=== PATIENT | female | born 1965 | race Caucasian/White ===

== ENCOUNTER 2023-06-21 09:00 | Emergency (ER) | payer OTHER, SELFPAY ==
[2023-06-21 09:09] VITALS: BP 181/102; PULSE 108; RESP 16; TEMP 36.7; O2SAT 98; BMI 42.5
--- NOTE | 2023-06-21 09:42 | ED.GENADUL1 ---
HPI - General Adult General Chief complaint: Vaginal Bleeding Stated complaint: BLOOD CLOTS/ABDOMINAL-OVARIAN PAIN Time Seen by Provider: 06/21/23 09:39 Source: patient and family Mode of arrival: walk-in Limitations: no limitations History of Present Illness HPI narrative: 58-year-old female to the emergency department with chief complaint of vaginal bleeding. Patient reports that she had a menstrual period that began on Tuesday. She reports cramping and heavier bleeding than typical. She passed several blood clots this AM. She reports some cramping lower abdominal pain associated with the bleeding. She has not taken any medications at home. She denies , reports she has not been sexually active for eleven years. She has not followed up with her HIGHWAY ENGINEERING TECHNICIAN in several years. She has an appointment with her PCP for this tomorrow AM. She reports that she has had increasingly infrequent and irregular menstrual cycles over the last several years. She believed that she was menopausal. She notes that when she does have it the bleeding is heavier than typical. She reports she is otherwise healthy. No blood thinners. No bleeding disorders. Related Data Previous Rx's Medication Instructions Recorded megestrol 20 mg tablet 20 mg PO BID #30 tabs 06/21/23 Allergies Allergy/AdvReac Type Severity Reaction Status Date / Time No Known Drug Allergies Allergy Verified 06/21/23 09:15 Review of Systems ROS Status of ROS 10 or more systems reviewed and unremarkable except as noted in history and below [facility] Social History Smoking status: Never smoker Exam Narrative Exam Narrative: VITALS: I have reviewed the triage vital signs. GENERAL: Well developed, well appearing adult in no acute distress. NEURO: Alert and oriented. Moves all extremities. Face is symmetric and expressive. EYES: PERRL. No scleral icterus or conjunctival injection. No discharge. HENT: Normocephalic, atraumatic. Hearing is grossly intact. Nares grossly patent and without discharge. Mucous membranes moist. NECK: No JVD. Patient moves neck without restriction. CARDIO: Rhythm regular. Normal rate. No murmur, rub, or gallop. Pulses equal bilaterally in the upper and lower extremity. No lower extremity edema. PULM: Lungs clear to auscultation in all blankenship. No wheezes, rales, or rhonchi. No conversational dyspnea. No splinting, stridor, or accessory muscle use. GI/: Abdomen is soft and non-tender. Normoactive bowel sounds. PELVIC EXAM: Consent obtained. Nurse Jesusita present in room as boat builder. External genitalia unremarkable. Speculum exam with normal appearing whitish vaginal discharge, small amount fo bright red blood. No clots in the vault. Vaginal wall mucosa is unremarkable. Cervix is unremarkable and closed in appearance without any protruding material. EXTREMITIES: Symmetric muscle bulk. No joint swelling. No clubbing, cyanosis, or deformity. SKIN: Warm and dry. Normal turgor. No rash or lesions appreciated. PSYCH: Mood, affect, and interaction is appropriate to the setting. Constitutional Vital Signs, click to edit/add: Last Vital Signs Temp 98.1 F 06/21/23 09:09 Pulse 108 H 06/21/23 09:09 Resp 16 06/21/23 09:09 BP 181/102 H 06/21/23 09:09 Pulse Ox 98 06/21/23 09:09 O2 Del Method Room Air 06/21/23 09:09 Course Vital Signs Vital signs: Vital Signs Temperature 98.1 F 06/21/23 09:09 Pulse Rate 108 H 06/21/23 09:09 Respiratory Rate 16 06/21/23 09:09 Blood Pressure 181/102 H 06/21/23 09:09 Pulse Oximetry 98 06/21/23 09:09 Oxygen Delivery Method Room Air 06/21/23 09:09 Temperature 98.1 F 06/21/23 09:09 Pulse Rate 108 H 06/21/23 09:09 Respiratory Rate 16 06/21/23 09:09 Blood Pressure 181/102 H 06/21/23 09:09 Pulse Oximetry 98 06/21/23 09:09 Oxygen Delivery Method Room Air 06/21/23 09:09 Medical Decision Making MDM Narrative Medical decision making narrative: MDM Data External documents reviewed: Not applicable My EKG interpretation: Not applicable My CT interpretation: Not applicable My X-ray interpretation: Not applicable My Ultrasound interpretation: Not applicable Decision rules/scores evaluated: Not applicable Discussed with: FRANKLIN Rios via telephone Treatment and Disposition ED Course: 58 y/o female to the ED with abnormal uterine bleeding. Vitals stable, the patient is afebrile. Basic labs and pelvic exam to be performed. Blood work reviewed and noted. She is anemic, unknown chronicity. She reports she has been told she is anemic in the past and does not believe that this number is abnormal for her. test is negative. Pelvic with blood in the vault, no obvious abn otherwise. Will proceed with US Pelvis. Ultrasound with two cysts on the ovaries. There is significantly thickened endometrium. Case was discussed with the on-call HIGHWAY ENGINEERING TECHNICIAN. Patient will need expedient workup, he will see next week. He recommended prescription of Megace. Patient updated on plan. She agrees with this. She will see Dr. Villatoro. Return precautions discussed. All questions were answered. The patient was discharged home. Shared decision making: As above Code status: Not addressed during this visit Medical Records Medical records reviewed: Yes I reviewed the patient's medical records Lab Data Lab results reviewed: Yes I reviewed the patient's lab results Labs: Lab Results 06/21/23 06/21/23 Range/Units 09:20 10:23 WBC 14.6 H (4.0-11.0) 10^3/uL RBC 4.30 (4.20-5.40) 10^6/uL Hgb 8.9 L (12.0-16.0) g/dL Hct 29.8 L (36.0-48.0) % MCV 69.3 L (81.0-99.0) fL MCH 20.7 L (26.7-34.0) pg MCHC 29.9 (29.9-35.2) g/dL RDW 21.3 H (11.0-15.0) % Plt Count 405 (150-450) 10^3/uL MPV 10.2 (9.5-13.5) fL Neut % (Auto) 73.6 (43.0-75.0) % Lymph % (Auto) 14.7 L (20.5-60.0) % [place] % (Auto) 8.5 (1.7-12.0) % Eos % (Auto) 2.0 (0.9-7.0) % Baso % (Auto) 0.8 (0.2-2.0) % Neut # (Auto) 10.8 H (1.4-6.5) 10^3/uL Lymph # (Auto) 2.2 (1.2-3.8) 10^3/uL [place] # (Auto) 1.3 H (0.3-0.8) 10^3/uL Eos # (Auto) 0.3 (0.0-0.7) 10^3/uL Baso # (Auto) 0.1 (0.0-0.1) 10^3/uL Abs Immat Gran (auto) 0.06 H (0.00-0.03) 10^3/uL Imm/Tot Granulo (auto) 0.4 (0.0-0.5) % Sodium 140 (136-145) mmol/L Potassium 3.9 (3.5-5.1) mmol/L Chloride 105 (98-107) mmol/L Carbon Dioxide 25.0 (21.0-32.0) mmol/L Anion Gap 13.9 BUN 6.0 L (7.0-18.0) mg/dL Creatinine 0.74 (0.55-1.02) mg/dL Est GFR ( Amer) >60 (>=60) Est GFR (Non-Af Amer) >60 (>=60) BUN/Creatinine Ratio 8.1 Glucose 132 H (74-106) mg/dL Calcium 8.7 (8.5-10.1) mg/dL Serum HCG, Qual Negative (NEGATIVE) Urine Color Dk red A (YELLOW) Urine Clarity Cloudy A (CLEAR) Urine pH 5.0 (5.0-9.0) Ur Specific [place] 1.025 (1.005-1.025) Urine Protein 100 A (NEG/TRACE) mg/dL Urine Glucose (UA) Negative (NEGATIVE) mg/dL Urine Ketones 15 A (NEGATIVE) mg/dL Urine Occult Blood Large A (NEGATIVE) Urine Nitrite Negative (NEGATIVE) Urine Bilirubin Negative (NEGATIVE) Urine Urobilinogen 0.2 (0.2-1.0) EU/dL Ur Leukocyte Esterase Trace A (NEGATIVE) Urine RBC >100 A (0-2) #/HPF Urine WBC 5-10 A (NONE SEEN) #/HPF Ur Squamous Epith Cells Moderate A (NONE/RARE) #/LPF Urine Crystals Seen A (None Seen) #/HPF Amorphous Sediment Moderate Urine Bacteria Moderate A (NONE SEEN) #/HPF Urine Mucus None seen (NONE SEEN) Discharge Plan Discharge Chief Complaint: Vaginal Bleeding Clinical Impression: Dysfunctional uterine bleeding Time of Disposition Decision: 12:35 Condition: Good Mode of Transportation: Private Vehicle Prescriptions / Home Meds: New megestrol 20 mg tablet 20 mg PO BID Qty: 30 0RF Rx Instructions: TAKE TWICE DAILY FOR 3 DAYS AND THEN ONCE DAILY ONGOING. Instructions: Abnormal (Dysfunctional) Uterine Bleeding (ED) Stand Alone Forms: Portal Instructions Referrals: Sincere Villatoro DO [Physician] - 1 week (LET THEM KNOW YOU WERE SEEN IN THE ED AND DR. VILLATORO WANTS YOU TO BE SEEN NO LATER THAN NEXT WEEK. ) Physician,Non-Staff, MD [Primary Care Provider] - 1 week
[2023-06-21 09:48] LABS: Anion Gap 13.9; BUN Creatinine Ratio 8.1; Calcium 8.7 mg/dL (8.5-10.1); Chloride 105 mmol/L (98-107); Estimated GFR (African America >60 (>=60); Estimated GFR (Non-African Ame >60 (>=60); Glucose 132 mg/dL (74-106); Potassium 3.9 mmol/L (3.5-5.1); Sodium 140 mmol/L (136-145)
[2023-06-21 09:53] LABS: Basophils Absolute Auto 0.1 10^3/uL (0.0-0.1); Basophils Percent Auto 0.8 % (0.2-2.0); Eosinophils Absolute Auto 0.3 10^3/uL (0.0-0.7); Hematocrit 29.8 % (36.0-48.0); Hemoglobin 8.9 g/dL (12.0-16.0); Immature Granulocytes Abs Auto 0.06 10^3/uL (0.00-0.03); Immature Granulocytes Pct Auto 0.4 % (0.0-0.5); Lymphocytes Absolute Auto 2.2 10^3/uL (1.2-3.8); Lymphocytes Percent Auto 14.7 % (20.5-60.0); Mean Corpuscular HGB Conc 29.9 g/dL (29.9-35.2); Mean Corpuscular Hemoglobin 20.7 pg (26.7-34.0); Mean Corpuscular Volume 69.3 fL (81.0-99.0); Mean Platelet Volume 10.2 fL (9.5-13.5); Monocytes Absolute Auto 1.3 10^3/uL (0.3-0.8); Monocytes Percent Auto 8.5 % (1.7-12.0); Neutrophils Absolute Auto 10.8 10^3/uL (1.4-6.5); Neutrophils Percent Auto 73.6 % (43.0-75.0); Platelet Count 405 10^3/uL (150-450); Red Cell Distribution Width 21.3 % (11.0-15.0); White Blood Count 14.6 10^3/uL (4.0-11.0)
[2023-06-21] MEDS: IBUPROFEN 600 MG TABLET PO (10:04)
--- NOTE | 2023-06-21 10:16 | US_ITS ---
[address] [address] Patient Name: BETINA KELLY MRN: [id number] date: 1965 Sex: F Assigned Patient Location: ER Current Patient Location: ER Accession/Order Number: [id number] Exam Date: 06/21/2023 10:40 Report Date: 06/21/2023 11:38 At the request of: THA CAICEDO Procedure: US pelvis transvaginal EXAMINATION: US pelvis transvaginal HISTORY: Pain, bleeding COMPARISON: No relevant comparison available. TECHNIQUE: Transabdominal and/or transvaginal sonographic examination was performed as indicated by examination type. FINDINGS: UTERUS: Enlarged uterus with homogeneous echotexture; no appreciable mass. Uterus size: 13.2 x 11.2 x 7.5 cm ENDOMETRIUM: Abnormally thickened but homogeneous. Endometrial thickness: 36 mm RIGHT OVARY: Contains a hypoechoic 2.0 cm vascular structures suspected to represent a complex cyst. I hypoechoic mass is felt less likely. Duplex Doppler demonstrates normal waveform and flow; resistive index 0.4. Ovary size: 3.0 x 4.0 x 3.9 cm LEFT OVARY: Not well seen, but suspect 5.4 cm cyst arising from the ovary. Duplex Doppler demonstrates normal waveform and flow; resistive index 0.6. Ovary size: 5.2 x 2.9 x 3.6 cm CUL-DE-SAC: Unremarkable. No significant free fluid. BLADDER: Unremarkable. OTHER: None. US/US pelvis transvaginal IMPRESSION: 1. Enlarged uterus with abnormally, markedly thickened endometrium; endometrial hyperplasia is favored over neoplasm. 2. Complex right ovarian cyst 2.0 cm in diameter. Follow-up imaging in 6 weeks to document regression is recommended. 3. Limited evaluation the left ovary due to its location and patient body habitus; suspect 5.4 cm cyst arising from the ovary. This should be followed up in 6 weeks via ultrasound as well. Electronically authenticated by: ADAM REEVES Date: 06/21/2023 11:38
[2023-06-21 10:27] LABS: HCG Qualitative NEGATIVE (NEGATIVE)
[2023-06-21 10:33] LABS: Bilirubin Urine NEGATIVE (NEGATIVE); Blood Urine LARGE (NEGATIVE); Glucose Urine UA NEGATIVE (NEGATIVE); Ketones Urine 15 mg/dL (NEGATIVE); Leukocyte Esterase Urine TRACE (NEGATIVE); Nitrite Urine NEGATIVE (NEGATIVE); Protein Urine 100 mg/dL (NEG/TRACE); Specific Gravity Urine 1.025 (1.005-1.025); Urobilinogen Urine 0.2 EU/dL (0.2-1.0)
[2023-06-21 10:35] LABS: Clarity Urine CLOUDY (CLEAR); Color Urine DK RED (YELLOW)
[2023-06-21 10:36] LABS: Bacteria Urine MODERATE #/HPF (NONE SEEN); Mucus Urine NONE SEEN (NONE SEEN); RBC Urine >100 #/HPF (0-2); Squamous Epithelial Cell Urine MODERATE #/LPF (NONE/RARE)
[2023-06-21 10:37] LABS: Amorphous Sediment Urine MODERATE; Crystals Seen? Seen #/HPF (None Seen)
== END 2023-06-21 12:46 | disposition home or self-care (01) ==
PROVIDERS: Emergency Provider Student in an Organized Health Care Education/Training Program
DX: N93.8 Other specified abnormal uterine and vaginal bleeding (principal)
CPT/HCPCS: 36415; 76830; 80048; 81001; 84703; 85025; 99284

== ENCOUNTER 2023-06-27 16:46 | Outpatient (OUT) | payer OTHER, SELFPAY ==
[2023-06-27 17:30] LABS: Basophils Absolute Auto 0.1 10^3/uL (0.0-0.1); Eosinophils Absolute Auto 0.4 10^3/uL (0.0-0.7); Eosinophils Percent Auto 3.9 % (0.9-7.0); Hematocrit 27.9 % (36.0-48.0); Hemoglobin 8.3 g/dL (12.0-16.0); Immature Granulocytes Abs Auto 0.02 10^3/uL (0.00-0.03); Immature Granulocytes Pct Auto 0.2 % (0.0-0.5); Lymphocytes Absolute Auto 2.9 10^3/uL (1.2-3.8); Lymphocytes Percent Auto 31.9 % (20.5-60.0); Mean Corpuscular HGB Conc 29.7 g/dL (29.9-35.2); Mean Corpuscular Hemoglobin 20.5 pg (26.7-34.0); Mean Corpuscular Volume 68.9 fL (81.0-99.0); Mean Platelet Volume 9.9 fL (9.5-13.5); Monocytes Absolute Auto 0.8 10^3/uL (0.3-0.8); Platelet Count 482 10^3/uL (150-450); Red Blood Count 4.05 10^6/uL (4.20-5.40); Red Cell Distribution Width 20.8 % (11.0-15.0); White Blood Count 9.2 10^3/uL (4.0-11.0)
[2023-06-27 17:33] LABS: Lactate Dehydrogenase 177 U/L (81-234)
[2023-06-29 04:07] LABS: AFP, Serum, Tumor Marker 2.9 ng/mL (0.0-9.2); CEA <0.6 ng/mL (0.0-4.7); HCG Tumor Marker <1 mIU/mL (.)
== END 2023-06-27 16:47 | disposition home or self-care (01) ==
PROVIDERS: Visit Provider Obstetrics & Gynecology
DX: N93.9 Abnormal uterine and vaginal bleeding, unspecified (principal); N92.1 Excessive and frequent menstruation with irregular cycle
CPT/HCPCS: 36415; 82105; 82378; 83615; 84702; 85025

== ENCOUNTER 2023-07-01 16:29 | Outpatient (OUT) | payer OTHER, SELFPAY ==
[2023-07-03 07:06] LABS: Cancer Antigen (CA) 125 68.6 U/mL (0.0-38.1)
== END 2023-07-01 16:30 | disposition home or self-care (01) ==
LOC: LAB 16:30
PROVIDERS: PCP Family Medicine; Visit Provider Obstetrics & Gynecology
DX: N93.9 Abnormal uterine and vaginal bleeding, unspecified (principal); N92.1 Excessive and frequent menstruation with irregular cycle
CPT/HCPCS: 36415; 86304

== ENCOUNTER 2023-07-30 11:25 | Outpatient (OUT) | payer OTHER, SELFPAY | END 2023-07-30 11:26 | disposition home or self-care (01) | PROVIDERS: PCP Family Medicine; Visit Provider Obstetrics & Gynecology | DX: N93.9 Abnormal uterine and vaginal bleeding, unspecified (principal); N92.1 Excessive and frequent menstruation with irregular cycle | CPT/HCPCS: 36415; 86304 ==

== ENCOUNTER 2024-01-10 06:26 | Day surgery (SDC) | payer OTHER, SELFPAY ==
[2024-01-10] VITALS (13 sets, daily range): BP systolic 161–200; BP diastolic 90–118; PULSE 77–95; RESP 16–23; TEMP 36.4–36.9; O2SAT 98–100; BMI 42.5; BMI 42.4
--- NOTE | 2024-01-10 | HP_ITS ---
Date: 01/10/2024 CHIEF COMPLAINT: Food impaction. HISTORY OF PRESENT ILLNESS: Patient is a 58-year-old female with history of hypertension, as well as history of iron deficiency anemia due to heavy periods. She did have a hysterectomy in July. She presented to the emergency room with the complaint of food impaction that began last evening when she was eating dinner. She believes a pork chop is stuck in her distal esophagus. She was able to bring up a small amount of the food, but since then has been unable to eat or drink. She is swallowing her saliva intermittently, but does have a sensation of obstruction. Workup in the emergency room this morning included laboratory evaluation as well as Glucagon, which was unsuccessful. Patient does have history of previous food impactions, but they all resolved on their own, as she has not required an EGD. She does have intermittent reflux for which she takes [id number] medications, but not on a daily basis. Her hemoglobin today is 10, which is up from 9 back in May, but she reports that she has not been taking her iron regularly. She has had no other abdominal surgery other than the hysterectomy in July. Has had no weight loss. No family history of GI malignancy or inflammatory bowel disease. She is on no aspirin, nonsteroidal anti-inflammatory drugs. MEDICATIONS: She is on no medications. She is supposed to be on megestrol, was supposed to be on anti-hypertensive but has not been taking that. ALLERGIES: She has no known drug allergies. PAST SURGICAL HISTORY: No other past surgical history, other than as noted in the HPI. SOCIAL HISTORY: Patient denies tobacco use, alcohol use or illicit drug use. FAMILY HISTORY: Noncontributory. REVIEW OF SYSTEMS: Ten system review of systems is negative for recent weight loss or weight gain. She denies increased fatigue or lightheadedness. Has had no earache or tinnitus. No sinus congestion, no sore throat or hoarseness. No chest pain, palpitations or syncope. No chronic cough, shortness of breath or hemoptysis. She has had the feelings from the food impaction, but no abdominal pain. No nausea or vomiting since trying to bring the food up. No change in bowel habit. No melena, hematochezia or bright red blood per rectum. No dysuria, frequency, urgency or hematuria. No headaches, seizures or tremors. No easy bruising or bleeding. No heat or cold intolerance. No polydipsia, polyphagia or polyuria. PHYSICAL EXAM: Blood pressure is elevated at 175/97. Pulse is 94 and regular. Respiratory rate is 18. She is afebrile. General: In general, she is an obese female, in no acute distress. HEENT: Normocephalic, atraumatic. Sclerae anicteric. Conjunctivae are not injected. Oral mucosa is moist without lesions. Neck is supple. There is no adenopathy or thyromegaly or JVD. Lungs are clear bilaterally. Cardiac exam is regular rhythm and rate without appreciable murmurs, rubs or gallops. Abdomen is obese and soft, non-tender, non-distended. There are no masses, hepatosplenomegaly or hernias. No CVA tenderness. Skin is warm and dry without lesions, rashes or ulcers. LABORATORY VALUES: Reveal a H&H of 7.3 and 37.5 with a normal platelet count, normal electrolytes. Glucose is elevated at 118. ASSESSMENT: That of a 58-year-old female with a food impaction. PLAN: To proceed with EGD under general anesthesia with removal and/or reduction of the food bolus. Indications, risks, benefits, alternatives of proceeding were explained extensively to the patient, including risks of bleeding, aspiration, esophageal/gastric/duodenal perforation or anesthetic complications. All of her questions were answered. Informed consent was obtained. CC: Laurie Mauricio M.D. VANESSA
--- NOTE | 2024-01-10 | OP_ITS ---
OPERATION DATE: 01/10/2024 PREOPERATIVE DIAGNOSIS: Food impaction. POSTOPERATIVE DIAGNOSIS: Food impaction with distal food impaction of meat. PROCEDURE: EGD with partial removal and then reduction of distal food bolus. SURGEON: Perez Smith M.D. ANESTHESIA: General endotracheal. ESTIMATED BLOOD LOSS: Zero. INDICATIONS AND CONSENT: Patient is a 58-year-old female who reports she was eating pork chops last evening, developed a food impaction. She was able to bring up part of it, but still had sensation of food in her lower esophagus and was unable to eat or drink anything without it coming back up. She is swallowing some of her saliva without difficulty. She was evaluated in the emergency room this morning, underwent Glucagon and hydration with no improvement. She does have a history of this in the past, but has never required EGD. She was always able to bring the food up or swallow it down without problem. She does have gastroesophageal reflux disease for which she occasionally takes [id number] medication. Indications, risks, benefits, alternatives of proceeding with EGD with removal/reduction of food bolus were explained extensively to the patient, including the risks of bleeding, aspiration, esophageal, gastric, duodenal perforation or anesthetic complications. All of her questions were answered. Informed consent was obtained. PROCEDURE: Patient was brought to the operating room, placed in the supine position. General anesthesia was induced. She was then placed in the left lateral decubitus position, appropriately monitored and padded. Bite block was placed in the patient?s mouth. Scope was inserted into the oropharynx. Under direct visualization, it was advanced into the esophagus, past the cricopharyngeus, down to the distal esophagus, where a large food bolus was encountered. It appeared to be pork. It was unable to be pushed into the stomach. Therefore, a large grasper was used to remove several chunks of the meat and loosen it up. These were brought out through the oropharynx. Initially, a snare was attempted to be used but was unsuccessful. Once several pieces were broken up, then it was able to be pushed into the stomach. The remaining pieces of meat were flushed into the stomach. Scope was passed into the stomach and retroflexed. There was no significant hiatal hernia. GE junction was noted at approximately 40 cm. There was some mild irritation where the food bolus was sitting, but no stricture. The remainder of the esophagus was unremarkable. The scope was then withdrawn. Patient tolerated procedure well, was sent to recovery room in good condition. CC: Kera Murray
--- NOTE | 2024-01-10 06:52 | PC.NURSE ---
Patient with foreign body in throat. Was eating pork chops last evening, felt it get stuck in throat. Was able to cough up some small pieces of the food, but still feels something stuck in her throat. She is not able to swallow water, when she tries it comes right back up. She is able to swallow a small amount of saliva, but does have to spit some of that out as well.
[2024-01-10] MEDS: GLUCAGON 1 MG/ML VIAL IV (07:03)
[2024-01-10] MEDS: ONDANSETRON PF 4 MG/2 ML VIAL IV (07:03)
--- NOTE | 2024-01-10 07:04 | ED.GENADUL1 ---
HPI - General Adult General Chief complaint: Skin/Abscess/Foreign Body Stated complaint: something stuck in throat Time Seen by Provider: 01/10/24 06:46 Source: patient Mode of arrival: walk-in Limitations: no limitations History of Present Illness HPI narrative: 58-year-old female to the emergency department with chief complaint of pork chop stuck in her throat. Patient reports that last night at 5 PM she was eating some pork chop and had difficulty swallowing. Reports every time she drinks liquids she vomits it up. She reports she did get a few small pieces of pork chop up some vomit last night but has persistence of foreign body sensation as well as inability to eat or drink. Over the last year she has had some issues with this that have been ongoing. She is usually able to drink some water and passed the obstruction however. She has a history of hypertension. No other major medical problems. No history of EGD or colonoscopy in the past. Has never seen a bander and cellophaner machine helper. Related Data Previous Rx's Medication Instructions Recorded megestrol 20 mg tablet 20 mg PO BID #30 tabs 06/21/23 Allergies Allergy/AdvReac Type Severity Reaction Status Date / Time No Known Drug Allergies Allergy Verified 06/21/23 09:15 Review of Systems ROS Status of ROS 10 or more systems reviewed and unremarkable except as noted in history and below PFSH PFS Social History Smoking status: Never smoker Exam Narrative Exam Narrative: VITALS: I have reviewed the triage vital signs. GENERAL: Well developed, well appearing adult in no acute distress. NEURO: Alert and oriented. Moves all extremities. Face is symmetric and expressive. EYES: PERRL. No scleral icterus or conjunctival injection. No discharge. HENT: Normocephalic, atraumatic. Hearing is grossly intact. Nares grossly patent and without discharge. Mucous membranes moist. NECK: No JVD. Patient moves neck without restriction. CARDIO: Rhythm regular. Normal rate. No murmur, rub, or gallop. Pulses equal bilaterally in the upper and lower extremity. No lower extremity edema. PULM: Lungs clear to auscultation in all blankenship. No wheezes, rales, or rhonchi. No conversational dyspnea. No splinting, stridor, or accessory muscle use. GI/: Abdomen is soft and non-tender. Normoactive bowel sounds. EXTREMITIES: Symmetric muscle bulk. No joint swelling. No clubbing, cyanosis, or deformity. SKIN: Warm and dry. Normal turgor. No rash or lesions appreciated. PSYCH: Mood, affect, and interaction is appropriate to the setting. Constitutional Vital Signs, click to edit/add: Last Vital Signs Temp 98.5 F 01/10/24 06:29 Pulse 94 H 01/10/24 07:10 Resp 17 01/10/24 07:10 BP 197/118 H 01/10/24 07:10 Pulse Ox 99 01/10/24 07:10 O2 Del Method Room Air 01/10/24 06:57 Course Vital Signs Vital signs: Vital Signs Temperature 98.5 F 01/10/24 06:29 Pulse Rate 95 H 01/10/24 06:29 Respiratory Rate 20 01/10/24 06:29 Blood Pressure 194/113 H 01/10/24 06:29 Pulse Oximetry 100 01/10/24 06:29 Oxygen Delivery Method Room Air 01/10/24 06:29 Temperature 98.5 F 01/10/24 06:29 Pulse Rate 94 H 01/10/24 07:10 Respiratory Rate 17 01/10/24 07:10 Blood Pressure 197/118 H 01/10/24 07:10 Pulse Oximetry 99 01/10/24 07:10 Oxygen Delivery Method Room Air 01/10/24 06:57 Medical Decision Making [facility] Narrative Medical decision making narrative: Well-appearing 58-year-old female to the emergency Department chief complaint of pork chops and throat. Vital stable, the patient is afebrile. She is able tolerate her secretions. She does sit with emesis bag in her hand. We'll attempt glucagon therapy. Zofran given. Patient agrees with this plan. No response to glucagon therapy or conservative measures. Case discussed with Dr. Smith who will take the patient for EGD at 11. Patient is updated and agrees with this plan. Lab Data Labs: Lab Results 01/10/24 Range/Units 07:06 POC Glucose 131 H (74-106) mg/dL Discharge Plan Discharge Chief Complaint: Skin/Abscess/Foreign Body Clinical Impression: Esophageal obstruction due to food impaction Patient Disposition: Admitted as Observation Time of Disposition Decision: 07:49 Condition: Good Prescriptions / Home Meds: No Action megestrol 20 mg tablet 20 mg PO BID Qty: 30 0RF Rx Instructions: TAKE TWICE DAILY FOR 3 DAYS AND THEN ONCE DAILY ONGOING. Additional Instructions: TO OR FOR EGD Referrals: Laurie Mauricio MD [Primary Care Provider] - 1 week
[2024-01-10 07:08] LABS: Glucometer 131 mg/dL (74-106)
--- NOTE | 2024-01-10 07:45 | PC.NURSE ---
food bolus still in place. patient still able to manage secretions but unable to swallow water. Yeni from OR called [facility] plan to go to OR at [address] Smith
[2024-01-10 07:51] LABS: Hematocrit 37.5 % (36.0-48.0); Hemoglobin 10.3 g/dL (12.0-16.0); Mean Corpuscular HGB Conc 27.5 g/dL (29.9-35.2); Mean Corpuscular Hemoglobin 17.9 pg (26.7-34.0); Platelet Count 443 10^3/uL (150-450); Red Blood Count 5.77 10^6/uL (4.20-5.40); Red Cell Distribution Width 23.4 % (11.0-15.0); White Blood Count 9.2 10^3/uL (4.0-11.0)
[2024-01-10 07:56] LABS: Anion Gap 16.5; BUN Creatinine Ratio 14.8; Calcium 9.8 mg/dL (8.5-10.1); Carbon Dioxide 26.3 mmol/L (21.0-32.0); Chloride 102 mmol/L (98-107); Estimated GFR (African America >60 (>=60); Estimated GFR (Non-African Ame >60 (>=60); Glucose 118 mg/dL (74-106); Potassium 3.8 mmol/L (3.5-5.1); Sodium 141 mmol/L (136-145)
[2024-01-10 08:13] LABS: Eosinophils Absolute Manual 0.09 10^3/uL (0.00-0.70); Lymphocytes Absolute Manual 2.48 10^3/uL (1.20-3.80); Monocytes Absolute Manual 0.27 10^3/uL (0.30-0.80); Segmented Neut Absolute Manual 6.34 10^3/uL (1.4-6.5)
[2024-01-10 08:14] LABS: Anisocytosis 1+; Hypochromasia 2+; Microcytosis 2+; Poikilocytosis 1+
[2024-01-10 08:15] LABS: Ovalocytes 1+
--- NOTE | 2024-01-10 09:26 | PC.NURSE ---
patient resting in bed, in no distress.Patient given belongings bag and instructed on what clothing to remove for procedure and updated on OR plan to come get patient around 1000. patient verbalizes understanding. patient given extra gown.
--- NOTE | 2024-01-10 10:14 | PC.NURSE ---
patient taken to OR at this time. patient stable at time of transfer
[2024-01-10] MEDS: LACTATED RINGER'S SOLUTION 1,000 ML 50 ML IV (10:41)
== END 2024-01-10 12:47 | disposition home or self-care (01) ==
LOC: ER 07:49 → SURGOUT 10:18 → ER 10:18 → SURGOUT 10:18
PROVIDERS: Emergency Provider Student in an Organized Health Care Education/Training Program; PCP Family Medicine; Visit Provider Surgery
PROC: (CPT 731; principal; 2024-01-10 11:00)
DX: T18.128A Food in esophagus causing other injury, initial encounter (principal); W44.F3XA Food entering into or through a natural orifice, initial encounter; I10 Essential (primary) hypertension; Z90.710 Acquired absence of both cervix and uterus; K21.9 Gastro-esophageal reflux disease without esophagitis; E66.01 Morbid (severe) obesity due to excess calories; Z68.41 Body mass index [BMI] 40.0-44.9, adult
CPT/HCPCS: 43247; 36415; 80048; 85007; 85027; 96374; 96375; 99285; J1610; J2704